=== PATIENT | male | born 1985 | race Hispanic/Latino ===

== ENCOUNTER 2020-12-15 02:20 | Emergency (ER) | payer OTHER ==
[2020-12-15] MEDS ORDERED: NA CHLORIDE 0.9% 1,000 ML ONE (03:40)
[2020-12-15 03:43] LABS: Protime INR 1.13
[2020-12-15 03:44] LABS: Absolute Lymphocytes (CBC) 1.2 K/uL (0.7-4.9); Basophils % 0.2 % (0-1.3); Hematocrit 44.4 % (39.6-49.0); Lymphocytes % 21.4 % (15.3-44.8); MPV 7.8 fL (7.6-11.3); RBC Red Blood Cell Count 5.02 M/uL (4.33-5.43)
[2020-12-15 04:11] LABS: ALT/SGPT 61 U/L (12-78); AST/SGOT 32 U/L (15-37); Alkaline Phosphatase 73 U/L (45-117); Bicarbonate 26 mmol/L (21-32); Bilirubin Direct 0.2 mg/dL (0-0.2); Bilirubin Total 1.1 mg/dL (0.2-1.0); Magnesium 2.3 mg/dL (1.8-2.4); Potassium 3.7 mmol/L (3.5-5.1); Protein, Total 8.4 g/dL (6.4-8.2); Sodium Level 138 mmol/L (136-145); Troponin (Emerg Dept Use Only) < 0.02 ng/mL (0.0-0.045)
[2020-12-15 04:23] LABS: BUN Blood Urea Nitrogen 12 mg/dL (7-18); Glucose Level 114 mg/dL (74-106)
[2020-12-15 04:25] LABS: NT PRO-BNP < 5 pg/mL (<125)
--- NOTE | 2020-12-15 05:48 | EDPHYS ---
Physician Documentation [facility] Name: Maldonado Alvarez Age: 35 yrs Sex: Male : 1985 Arrival Date: 12/15/2020 Time: 02:23 Bed 20 Private MD: ED Physician Wally Villarreal HPI: 12/15 02:51 This 35 yrs old Male presents to ER via Ambulatory with complaints of SWEATING mh7 ALOT, COVID POSITIVE. 02:51 The patient reports fever, not measured (subjective). Onset: The symptoms/episode mh7 began/occurred today. Modifying factors: The patient has had contact with sick co-worker(s). Associated signs and symptoms: Pertinent positives: chest pain, cough, with yellow sputum, myalgias, night sweats, Pertinent negatives: abdominal pain, altered mental status, arthralgias, backache, chills, diarrhea, earache, headache, hemoptysis, nausea, runny nose, sinus congestion, sinus drainage, skin rash, shortness of breath, sore throat, swelling, vomiting. Severity of symptoms: At their worst the symptoms were moderate today, in the emergency department the symptoms have improved moderately. Tested positive for COVID 5 days ago. Historical: - Allergies: 02:42 No Known Allergies; jb4 - Home Meds: 02:42 None [Active]; jb4 - PMHx: 02:42 None; jb4 - PSHx: 02:42 None; jb4 - Immunization history:: Adult Immunizations up to date. - Social history:: Smoking status: Patient denies any tobacco usage or history of. Patient/guardian denies using alcohol, street drugs. ROS: 02:51 Eyes: Negative for injury, pain, redness, and discharge, ENT: Negative for injury, mh7 pain, and discharge, Neck: Negative for injury, pain, and swelling, Abdomen/GI: Negative for abdominal pain, nausea, vomiting, diarrhea, and constipation, Back: Negative for injury and pain, : Negative for injury, bleeding, discharge, and swelling, MS/Extremity: Negative for injury and deformity, Skin: Negative for injury, rash, and discoloration, Neuro: Negative for headache, weakness, numbness, tingling, and seizure, Psych: Negative for depression, anxiety, suicide ideation, homicidal ideation, and hallucinations, Allergy/Immunology: Negative for hives, rash, and allergies, Endocrine: Negative for neck swelling, polydipsia, polyuria, polyphagia, and marked weight changes, Hematologic/Lymphatic: Negative for swollen nodes, abnormal bleeding, and unusual bruising. Exam: 02:51 Head/Face: Normocephalic, atraumatic. Eyes: Pupils equal round and reactive to light, mh7 extra-ocular motions intact. Lids and lashes normal. Conjunctiva and sclera are non-icteric and not injected. Cornea within normal limits. Periorbital areas with no swelling, redness, or edema. ENT: Nares patent. No nasal discharge, no septal abnormalities noted. Tympanic membranes are normal and external auditory canals are clear. Oropharynx with no redness, swelling, or masses, exudates, or evidence of obstruction, uvula midline. Mucous membranes moist. Neck: Trachea midline, no thyromegaly or masses palpated, and no cervical lymphadenopathy. Supple, full range of motion without nuchal rigidity, or vertebral point tenderness. No Meningismus. Chest/axilla: Normal chest wall appearance and motion. Nontender with no deformity. No lesions are appreciated. 02:51 Respiratory: Lungs have equal breath sounds bilaterally, clear to auscultation and percussion. No rales, rhonchi or wheezes noted. No increased work of breathing, no retractions or nasal flaring. Abdomen/GI: Soft, non-tender, with normal bowel sounds. No distension or tympany. No guarding or rebound. No evidence of tenderness throughout. Back: No spinal tenderness. No costovertebral tenderness. Full range of motion. Skin: Warm, dry with normal turgor. Normal color with no rashes, no lesions, and no evidence of cellulitis. MS/ Extremity: Pulses equal, no cyanosis. Neurovascular intact. Full, normal range of motion. Neuro: Awake and alert, GCS 15, oriented to person, place, time, and situation. Cranial nerves II-XII grossly intact. Motor strength 5/5 in all extremities. Sensory grossly intact. Cerebellar exam normal. Normal gait. 02:51 Constitutional: The patient appears in no acute distress, alert, awake, anxious. 02:51 Cardiovascular: Rate: tachycardic, Rhythm: regular, Pulses: no pulse deficits are appreciated, Heart sounds: normal, normal S1and S2, Edema: is not appreciated, JVD: is not appreciated. 02:51 Psych: Behavior/mood is pleasant, cooperative, anxious, Affect is calm, Oriented to person, place, time, Patient has no thoughts/intents to harm self or others. Judgement / Insight is normal. Memory is normal. Delusions/hallucinations are not present. Vital Signs: 02:39 BP 142 / 98; Pulse 109; Resp 16; Temp 98.8(O); Pulse Ox 99% on R/A; Weight 124.74 kg jb4 (R); Height 5 ft. 2 in. (157.48 cm) (R); Pain 0/10; 03:43 BP 118 / 86; Pulse 85; Resp 16; Temp 98.7(O); Pulse Ox 97% on R/A; Pain 0/10; fu 04:35 BP 124 / 82; Pulse 86; Resp 14 S; Pulse Ox 99% on R/A; Pain 0/10; fu 05:00 BP 103 / 92; Pulse 92; Resp 15; Pulse Ox 99% on R/A; Pain 0/10; fu 02:39 Body Mass Index 50.30 (124.74 kg, 157.48 cm) jb4 MDM: 05:45 Differential diagnosis: viral Infection, bacterial infection, URI, bronchitis, mh7 pneumonia. Data reviewed: vital signs, nurses notes, lab test result(s), cardiac enzymes, CBC, electrolytes, EKG, radiologic studies, plain films. Data interpreted: Pulse oximetry: on room air is 99 %. Interpretation: normal. Counseling: I had a detailed discussion with the patient and/or guardian regarding: the historical points, exam findings, and any diagnostic results supporting the discharge/admit diagnosis, lab results, radiology results, the need for outpatient follow up, to return to the emergency department if symptoms worsen or persist or if there are any questions or concerns that arise at home. Response to treatment: the patient's symptoms have resolved after treatment, the patient's blood pressure is in an acceptable range, mental status has returned to baseline, the patient no longer shows bradycardia, the patient is not short of breath, the patient is not tachycardic, the patient is now symptom free, patient is well hydrated. 05:47 Patient medically screened. [facility] 12/15 02:40 Order name: Basic Metabolic Panel [facility] 12/15 02:40 Order name: CBC with Diff; Complete Time: 03:49 [facility] 12/15 02:40 Order name: LFT's; Complete Time: 04:28 [facility] 12/15 02:40 Order name: Magnesium; Complete Time: 04:28 [facility] 12/15 02:40 Order name: NT PRO-BNP; Complete Time: 04:28 [facility] 12/15 02:40 Order name: PT-INR; Complete Time: 03:53 [facility] 12/15 02:40 Order name: Troponin (emerg Dept Use Only); Complete Time: 04:28 [facility] 12/15 02:40 Order name: XRAY Chest (1 view) [facility] 12/15 02:40 Order name: EKG; Complete Time: 02:42 [facility] 12/15 02:40 Order name: Cardiac monitoring; Complete Time: 03:11 12/15 02:40 Order name: EKG - Nurse/Tech; Complete Time: 03:11 [facility] 12/15 02:41 Order name: Basic Metabolic Panel [facility] 12/15 04:29 Order name: D-Dimer; Complete Time: 05:31 [facility] 12/15 02:40 Order name: IV Saline Lock; Complete Time: 03:20 12/15 02:40 Order name: Labs collected and sent; Complete Time: 03:20 [facility] 12/15 02:40 Order name: O2 Per Protocol; Complete Time: 03:21 12/15 02:40 Order name: O2 Sat Monitoring; Complete Time: 03:21 7 Administered Medications: 03:27 Drug: NS 0.9% 1000 ml Route: IV; Rate: 1000 ml; Site: right antecubital; fu 04:25 Follow up: Response: No adverse reaction; IV Status: Completed infusion; IV Intake: fu 1000ml Disposition: 12/15/20 05:47 Discharged to Home. Impression: Coronavirus infection, unspecified. - Condition is Stable. - Discharge Instructions: COVID-19. - Medication Reconciliation Form, Thank You Letter, Antibiotic Education, Prescription Opioid Use form. - Follow up: Private Physician; When: 1 - 2 days; Reason: Worsening of condition, Recheck today's complaints, Continuance of care, Re-evaluation by your physician. - Problem is new. - Symptoms have improved. Signatures: Dispatcher [employer] [facility] Edwin Ibarra, RN RN jb4 Alex Wyatt RN RN Wally Ghosh MD MD mh7 Corrections: (The following items were deleted from the chart) 06:43 05:47 12/15/2020 05:47 Discharged to Home. Impression: Coronavirus infection, fu unspecified. Condition is Stable. Forms are Medication Reconciliation Form, Thank You Letter, Antibiotic Education, Prescription Opioid Use. Follow up: Private Physician; When: 1 - 2 days; Reason: Worsening of condition, Recheck today's complaints, Continuance of care, Re-evaluation by your physician. Problem is new. Symptoms have improved. mh7
--- NOTE | 2020-12-15 05:48 | ER ---
Nurse's Notes [facility] Name: Maldonado Alvarez Age: 35 yrs Sex: Male : 1985 Arrival Date: 12/15/2020 Time: 02:23 Bed 20 Private MD: Diagnosis: Coronavirus infection, unspecified Presentation: 12/15 02:39 Chief complaint: Patient states: I have been running a fever on and off, I have been jb4 sweating constantly. 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 Coronavirus screen: Client presents with at least one sign or symptom that may indicate coronavirus-19. Client reports previous positive COVID test result. Ebola Screen: No symptoms or risks identified at this time. Initial Sepsis Screen: Does the patient meet any 2 criteria? HR > 90 bpm. Yes Does the patient have a suspected source of infection? No. Patient's initial sepsis screen is negative. Risk Assessment: Do you want to hurt yourself or someone else? Patient reports no desire to harm self or others. Onset of symptoms was December 15, 2020. Transition of care: patient was not received from another setting of care. 02:39 Method Of Arrival: Ambulatory jb4 02:39 Acuity: QUAN 3 jb4 Historical: - Allergies: 02:42 No Known Allergies; jb4 - Home Meds: 02:42 None [Active]; jb4 - PMHx: 02:42 None; jb4 - PSHx: 02:42 None; jb4 - Immunization history:: Adult Immunizations up to date. - Social history:: Smoking status: Patient denies any tobacco usage or history of. Patient/guardian denies using alcohol, street drugs. Screenin:49 Abuse screen: Denies threats or abuse. Nutritional screening: No deficits noted. fu Tuberculosis screening: No symptoms or risk factors identified. Fall Risk None identified. Assessment: 03:44 General: Appears in no apparent distress. Behavior is calm, cooperative, appropriate fu for age, Reports feeling ill for on and off fever at home. Pain: Complains of pain in chest Pain does not radiate. Pain currently is 2 out of 10 on a pain scale. Pain began 30 min ago. Neuro: Level of Consciousness is awake, alert, obeys commands, Oriented to person, place, time, situation, Moves all extremities. Gait is steady, Speech is normal, Facial symmetry appears normal. Cardiovascular: Reports chest pain. Cardiovascular: Reports diaphoresis. Respiratory: Reports tested positive for last 12/10/20. GI: Patient currently denies abdominal pain, nausea, vomiting. Derm: Skin is diaphoretic. 04:18 Reassessment: Patient and/or family updated on plan of care and expected duration. Pain fu level reassessed. Patient is alert, oriented x 3, equal unlabored respirations, skin warm/dry/pink. Patient stated that he is not sweating anymore. Vital Signs: 02:39 BP 142 / 98; Pulse 109; Resp 16; Temp 98.8(O); Pulse Ox 99% on R/A; Weight 124.74 kg jb4 (R); Height 5 ft. 2 in. (157.48 cm) (R); Pain 0/10; 03:43 BP 118 / 86; Pulse 85; Resp 16; Temp 98.7(O); Pulse Ox 97% on R/A; Pain 0/10; fu 04:35 BP 124 / 82; Pulse 86; Resp 14 S; Pulse Ox 99% on R/A; Pain 0/10; fu 05:00 BP 103 / 92; Pulse 92; Resp 15; Pulse Ox 99% on R/A; Pain 0/10; fu 02:39 Body Mass Index 50.30 (124.74 kg, 157.48 cm) jb4 ED Course: 02:23 Patient arrived in ED. cf2 02:32 Wally Villarreal MD is Attending Physician. 7 02:42 Triage completed. jb4 02:42 Arm band placed on right wrist. jb4 02:57 XRAY Chest (1 view) In Process Unspecified. EDMS 03:10 Alex Wyatt, YVETTE is Primary Nurse. fu 03:15 Inserted saline lock: 20 gauge in right antecubital area, using aseptic technique. fu Blood collected. 03:20 Troponin (emerg Dept Use Only) Sent. fu 03:20 PT-INR Sent. fu 03:21 NT PRO-BNP Sent. fu 03:21 Magnesium Sent. fu 03:21 LFT's Sent. fu 03:21 CBC with Diff Sent. fu 03:21 Basic Metabolic Panel Sent. fu 03:49 Patient has correct armband on for positive identification. Bed in low position. Call fu light in reach. Side rails up X 1. inspector poising on. Pulse ox on. NIBP on. 06:43 No provider procedures requiring assistance completed. IV discontinued, bleeding fu controlled, Pressure dressing applied. Administered Medications: 03:27 Drug: NS 0.9% 1000 ml Route: IV; Rate: 1000 ml; Site: right antecubital; fu 04:25 Follow up: Response: No adverse reaction; IV Status: Completed infusion; IV Intake: fu 1000ml Intake: 04:25 IV: 1000ml; Total: 1000ml. fu Outcome: 05:47 Discharge ordered by MD. kaur 06:43 Discharged to home ambulatory. fu 06:43 Condition: good 06:43 Discharge instructions given to patient, Instructed on discharge instructions, follow up and referral plans. Demonstrated understanding of instructions. 06:43 Patient left the ED. fu Signatures: Dispatcher [employer] EDEdwin Quevedo RN YVETTE jb4 Alex Wyatt RN RN fu Melo Ceballos cf2 Wally Villarreal MD MD 7
[2020-12-15 07:14] VITALS: TEMP 98.7
[2020-12-15 07:15] VITALS: BP 124/82; O2SAT 99
--- NOTE | 2020-12-15 19:23 | RAD REPORT ---
EXAM DESCRIPTION: RAD - Chest Single View - 12/15/2020 2:57 am CLINICAL HISTORY: COUGH COMPARISON: None. FINDINGS: Single frontal radiograph view of the chest. Cardiomediastinal silhouette: Normal size and contour. Lungs: No consolidation, pneumothorax, or pleural effusion. Bones: No acute osseous abnormality. Upper abdomen: No abnormality identified. IMPRESSION: 1. No acute pulmonary process identified. Electronically signed by: Wolfgang Munguia 12/15/2020 4:39 AM DRUM STRAIGHTENER Due to temporary technical issues with the PACS/Fluency reporting system, reports are being signed by the in house radiologists without review as a courtesy to insure prompt reporting. The interpreting radiologist is fully responsible for the content of the report.
== END 2020-12-15 06:43 | disposition home or self-care (01) ==
LOC: ER 02:20
DX: U07.1 COVID-19 (principal)
CPT/HCPCS: 85025; 80048; 36415; 83735; 85610; 85379; 80076; 84484; 83880; 71045; 96360; 99284; J7030

== ENCOUNTER 2021-07-29 17:21 | Emergency (ER) | payer OTHER ==
--- NOTE | 2021-07-29 17:52 | ER ---
Nurse's Notes [facility] Name: Maldonado Alvarez Age: 36 yrs Sex: Male : 1985 Arrival Date: 07/29/2021 Time: 17:23 Bed 8 Private MD: Diagnosis: Laceration without foreign body of left eyelid and periocular area Presentation: 07/29 17:26 Chief complaint: Drill slipped while installing a vent sarabia, metal plate hit face. hb Laceration noted to left eyebrow. Bleeding controlled. Coronavirus screen: At this time, the client does not indicate any symptoms associated with coronavirus-19. Ebola Screen: No symptoms or risks identified at this time. Initial Sepsis Screen: Does the patient meet any 2 criteria? No. Patient's initial sepsis screen is negative. Does the patient have a suspected source of infection? No. Patient's initial sepsis screen is negative. Risk Assessment: Do you want to hurt yourself or someone else? Patient reports no desire to harm self or others. Onset of symptoms was July 29, 2021. 17:26 Method Of Arrival: Ambulatory hb 17:26 Acuity: QUAN 4 hb Historical: - Allergies: 17:28 No Known Allergies; hb - Immunization history:: Last tetanus immunization: unknown. - Social history:: Smoking status: Patient denies any tobacco usage or history of. Screenin:36 Abuse screen: Denies threats or abuse. Nutritional screening: No deficits noted. ll1 Tuberculosis screening: No symptoms or risk factors identified. 17:44 Fall Risk Total Wooten Fall Scale indicates No Risk (0-24 pts). ll1 Assessment: 17:43 General: Appears uncomfortable, Behavior is calm, cooperative, appropriate for age. ll1 Pain: Complains of pain in L eyebrow Quality of pain is described as aching. Derm: Wound noted L eyebrow Wound is <3 cm laceration to L eyebrow. No active bleeding. Reports pain. 18:01 Reassessment: No changes from previously documented assessment. Patient and/or family ll1 updated on plan of care and expected duration. Pain level reassessed. Patient is alert, oriented x 3, equal unlabored respirations, skin warm/dry/pink. Vital Signs: 17:26 BP 138 / 89; Pulse 91; Resp 16; Temp 98.3; Pulse Ox 100% on R/A; Weight 117.93 kg; hb Height 5 ft. 10 in. (177.80 cm); Pain 9/10; 18:02 BP 150 / 86; Pulse 80; Resp 16; ll1 17:26 Body Mass Index 37.31 (117.93 kg, 177.80 cm) ED Course: 17:23 Patient arrived in ED. ds1 17:28 Triage completed. 17:28 Arm band placed on. 17:30 Maldonado Singh PA is PHCP. 8 17:30 Kevin Winters MD is Attending Physician. 8 17:36 Cassidy Gutierres, YVETTE is Primary Nurse. ll1 17:36 Patient placed in an exam room, on a stretcher. ll1 17:36 Patient has correct armband on for positive identification. Bed in low position. Call ll1 light in reach. Side rails up X 1. Cardiac monitoring not applicable on this patient. 18:01 No provider procedures requiring assistance completed. Patient did not have IV access ll1 during this emergency room visit. Administered Medications: 17:35 Drug: Lidocaine-Epinephrine -1%: (1:100,000) 1 vials {Note: by Pati Singh during suture ll1 repair..} Volume: 20 ml; Route: Infiltration; 17:50 Follow up: Response: No adverse reaction ll1 17:42 Drug: Tetanus-Diphtheria Toxoid Adult 0.5 ml {Granulator Tender: [employer]. Exp: ll1 01/24/2023. Lot #: [id number]. } Route: IM; Site: right deltoid; 17:50 Follow up: Response: No adverse reaction 1 Outcome: 17:52 Discharge ordered by . [facility] 18:01 Discharged to home ambulatory. ll1 18:01 Condition: stable 18:01 Discharge instructions given to patient, Instructed on discharge instructions, follow up and referral plans. wound care, Demonstrated understanding of instructions, follow-up care, wound care. 18:02 Patient left the ED. ll1 Signatures: Sirisha Ribera ds1 Maldonado Singh PA PA 8 Chelsey Chowdhury RN RN Cassidy Gutierres RN RN ll1 Corrections: (The following items were deleted from the chart) 17:29 17:26 Chief complaint: Drill slipped while installing a vent sarabia, metal plate hit hb face. Laceration noted to left eyebrow. hb
--- NOTE | 2021-07-29 17:53 | EDPHYS ---
Physician Documentation [facility] Name: Maldonado Alvarez Age: 36 yrs Sex: Male : 1985 Arrival Date: 07/29/2021 Time: 17:23 Bed 8 Private MD: ED Physician Kevin Winters HPI: 07/29 17:49 This 36 yrs old Male presents to ER via Ambulatory with complaints of Lac jr8 Eyebrow. 17:49 Is a 36-year-old male patient was presented to the emergency room for laceration to the jr8 left eyebrow. Patient stated that he sustained a laceration from a galvanized plate that hit him in the left eye. Denies any other trauma at this time.. Historical: - Allergies: 17:28 No Known Allergies; hb - Immunization history:: Last tetanus immunization: unknown. - Social history:: Smoking status: Patient denies any tobacco usage or history of. ROS: 17:49 Constitutional: Negative for fever, chills, and weight loss, Cardiovascular: Negative jr8 for chest pain, palpitations, and edema, Respiratory: Negative for shortness of breath, cough, wheezing, and pleuritic chest pain, MS/Extremity: Negative for injury and deformity, Neuro: Negative for headache, weakness, numbness, tingling, and seizure. 17:49 Skin: Positive for laceration(s). Exam: 17:49 Constitutional: This is a well developed, well nourished patient who is awake, alert, jr8 and in no acute distress. Head/Face: Normocephalic, atraumatic. Eyes: Pupils equal round and reactive to light, extra-ocular motions intact. Lids and lashes normal. Conjunctiva and sclera are non-icteric and not injected. Cornea within normal limits. Periorbital areas with no swelling, redness, or edema. ENT: Nares patent. No nasal discharge, no septal abnormalities noted. Tympanic membranes are normal and external auditory canals are clear. Oropharynx with no redness, swelling, or masses, exudates, or evidence of obstruction, uvula midline. Mucous membranes moist. Cardiovascular: Regular rate and rhythm with a normal S1 and S2. No gallops, murmurs, or rubs. Normal PMI, no JVD. No pulse deficits. Respiratory: Lungs have equal breath sounds bilaterally, clear to auscultation and percussion. No rales, rhonchi or wheezes noted. No increased work of breathing, no retractions or nasal flaring. MS/ Extremity: Pulses equal, no cyanosis. Neurovascular intact. Full, normal range of motion. Neuro: Awake and alert, GCS 15, oriented to person, place, time, and situation. Cranial nerves II-XII grossly intact. Motor strength 5/5 in all extremities. Sensory grossly intact. Cerebellar exam normal. Normal gait. 17:49 Skin: injury, laceration(s), the wound is approximately 3 cm(s), with a depth of .5 cm(s), of the Left eyebrow, that can be described as no foreign body, irregular, with mild bleeding. Vital Signs: 17:26 BP 138 / 89; Pulse 91; Resp 16; Temp 98.3; Pulse Ox 100% on R/A; Weight 117.93 kg; hb Height 5 ft. 10 in. (177.80 cm); Pain 9/10; 18:02 BP 150 / 86; Pulse 80; Resp 16; ll1 17:26 Body Mass Index 37.31 (117.93 kg, 177.80 cm) hb Laceration: 17:49 Wound Repair of 3cm ( 1.2in ) subcutaneous laceration to Left eyebrow. Irregularly jr8 shaped.. Minimal bleeding noted.. Distal neuro/vascular/tendon intact. Anesthesia: Local anesthetic administered with 2 mls of 1% lidocaine w/ Epi. Wound prep: Moderate cleansing with hibiclenz, Wound irrigation with saline, Wound explored extensively. Skin closed with 4 5-0 Prolene using interrupted sutures and sterile technique. Patient tolerated well. MDM: 17:30 Patient medically screened. jr8 17:49 Data reviewed: vital signs, nurses notes, and as a result, I will discharge patient. jr8 Data interpreted: Pulse oximetry: on room air is 100 %. Interpretation: normal. Counseling: I had a detailed discussion with the patient and/or guardian regarding: the historical points, exam findings, and any diagnostic results supporting the discharge/admit diagnosis, the need for outpatient follow up, a family practitioner, to return to the emergency department if symptoms worsen or persist or if there are any questions or concerns that arise at home. Administered Medications: 17:35 Drug: Lidocaine-Epinephrine -1%: (1:100,000) 1 vials {Note: by Pati Singh during suture ll1 repair..} Volume: 20 ml; Route: Infiltration; 17:50 Follow up: Response: No adverse reaction ll1 17:42 Drug: Tetanus-Diphtheria Toxoid Adult 0.5 ml {Operational Meteorologist: [employer]. Exp: ll1 01/24/2023. Lot #: [id number]. } Route: IM; Site: right deltoid; 17:50 Follow up: Response: No adverse reaction ll1 Disposition: 18:27 Co-signature as Attending Physician, Kevin Winters MD I agree with the assessment and rn plan of care. Attestation: The patient's history, exam findings, diagnostics, and a summary of any interventions or procedures was reviewed in detail with Maldonado SANDERS. Disposition Summary: 07/29/21 17:52 Discharge Ordered Location: Home [facility] Problem: new jr8 Symptoms: have improved jr8 Condition: Stable jr8 Diagnosis - Laceration without foreign body of left eyelid and periocular area jr8 Followup: jr8 - With: Private Physician - When: 1 week - Reason: Wound Recheck, Recheck today's complaints, Continuance of care, Staple/Suture removal, Re-evaluation by your physician Discharge Instructions: - Discharge Summary Sheet jr8 - Laceration Care, Adult jr8 - Facial Laceration jr8 Forms: - Medication Reconciliation Form jr8 - Thank You Letter jr8 - Antibiotic Education jr8 - Prescription Opioid Use jr8 Signatures: Kevin Winters MD MD rn Roszak, Josh, PA PA jr8 Chelsey Chowdhury RN YVETTE Cassidy Gutierres RN RN ll1
[2021-07-29] MEDS ORDERED: LIDOCAINE 1% W/EPI 1:100,000 MDV 20 ML VIAL ONE (18:01)
[2021-07-29] MEDS ORDERED: TETANUS & DIPHTHERIA TOX,ADULT 0.5 ML VIAL ONE (18:03)
[2021-07-29 18:08] VITALS: TEMP 98.3; O2SAT 100
[2021-07-29 18:09] VITALS: BP 150/86
== END 2021-07-29 18:02 | disposition home or self-care (01) ==
LOC: ER 17:21
PROC: 0JQ10ZZ Repair Face Subcutaneous Tissue and Fascia, Open Approach (ICD-10-PCS; principal; 2021-07-29)
DX: S01.112A Laceration without foreign body of left eyelid and periocular area, initial encounter (principal); W22.8XXA Striking against or struck by other objects, initial encounter; Y92.009 Unspecified place in unspecified non-institutional (private) residence as the place of occurrence of the external cause; Z23 Encounter for immunization
CPT/HCPCS: 90471; 90714; 99283